=== PATIENT | female | born 1995 | race Two or more races ===

== ENCOUNTER 2023-02-03 11:22 | Emergency (ER) | payer BC, OTHER ==
[~2023-02-03] VITALS: Ht 160 cm; Wt 115.6 kg
[2023-02-03] MEDS ORDERED: HYDROmorphone HCL 2 MG/ML VL/or syr IV ONE ×2 (11:45→14:30)
[2023-02-03] MEDS ORDERED: ONDANSETRON HCL 4 MG/2 ML VIAL IV ONE (11:45)
[2023-02-03 11:56] VITALS: BP 114/73
[2023-02-03 12:12] LABS: Basophils # (auto) 0 10 ^3/uL (0-0.2); Basophils % (auto) 0.3 % (0.0-2.0); Eosinophils # (auto) 0 10 ^3/uL (0-0.8); Monocytes # (auto) 0.5 10 ^3/uL (0-1.3); Monocytes % (auto) 3.1 % (0.0-12.0); Neutrophils # (auto) 14.6 10 ^3/uL (1.6-8.6)
[2023-02-03 12:13] LABS: Hematocrit 36.1 % (36.0-46.0); Hemoglobin 11.8 g/dL (12.2-16.2); Lymphocytes # (auto) 0.9 10 ^3/uL (0.4-5.4); Lymphocytes % (auto) 5.5 % (10.0-50.0); Mean Corpuscular Hemoglobin 26.2 pg (28.0-32.0); Mean Corpuscular Hgb Conc. 32.6 g/dL (32.0-36.0); Mean Corpuscular Volume 80.3 fL (80.0-100.0); Neutrophils % (auto) 91.1 % (37.0-80.0); Red Cell Distribution Width 14.4 % (11.8-14.3)
[2023-02-03 12:27] LABS: Calcium 9.6 mg/dL (8.5-10.1); Magnesium 1.6 mg/dL (1.6-2.6)
[2023-02-03 12:30] LABS: BUN/Creatinine Ratio 8.3 (10.0-20.0); Bilirubin, Total 0.8 mg/dL (0.2-1.0); Lactic Acid w/Reflex 3.6 mmol/L (0.4-2.0); Total Protein 8.3 g/dL (6.4-8.2)
[2023-02-03 12:33] LABS: Urine Bacteria NONE SEEN /hpf (None Seen); Urine Blood 1+ /uL (Negative); Urine Mucus FEW (None Seen); Urine Specific Gravity 1.019 (1.001-1.035); Urine WBC 1 /hpf (0 - 5)
[2023-02-03 12:35] LABS: Potassium 4.9 mmol/L (3.5-5.1)
[2023-02-03] MEDS ORDERED: HYDROmorphone HCL 2 MG/ML VL/or syr IM ONE ×2 (13:00)
== END 2023-02-03 13:03 | disposition left against medical advice (07) ==
LOC: ER 11:22
DX: R10.13 Epigastric pain (principal); R11.2 Nausea with vomiting, unspecified; R10.2 Pelvic and perineal pain
CPT/HCPCS: 36415; 76705; 80053; 81001; 83605; 83690; 83735; 84702; 85025; 96374; 99285; J2405